=== PATIENT | female | born 2000 ===

== ENCOUNTER 2025-03-01 15:56 | Outpatient (RCR) | payer OTHER, SELFPAY | END 2025-03-29 13:09 | disposition home or self-care (01) | LOC: PT 15:56 | PROVIDERS: PCP Emergency Medicine Emergency Medical Services; Visit Provider Emergency Medicine Emergency Medical Services | DX: S29.011D Strain of muscle and tendon of front wall of thorax, subsequent encounter (principal); S46.912D Strain of unspecified muscle, fascia and tendon at shoulder and upper arm level, left arm, subsequent encounter | CPT/HCPCS: 97110; 97112; 97140; 97162 ==